=== PATIENT | male | born 1955 | race Caucasian/White ===

== ENCOUNTER → 2021-03-03 00:31 | Outpatient (CLI) | payer MEDICARE, SELFPAY ==
[2021-03-03 19:26] LABS: SARS-CoV-2 RNA PCR Negative
== END ==
PROVIDERS: Visit Provider Internal Medicine Gastroenterology
DX: Z01.812 Encounter for preprocedural laboratory examination (principal); Z20.822 Contact with and (suspected) exposure to COVID-19
CPT/HCPCS: C9803; U0003; U0005

== ENCOUNTER 2021-03-07 00:53 | Day surgery (SDC) | payer MEDICARE, SELFPAY ==
[2021-02-28 15:37] VITALS: BMI 37.3
[2021-03-07 09:50] VITALS: BP 132/63; PULSE 77; RESP 18; TEMP 35.9; O2SAT 97; BMI 37.3
[2021-03-07 09:59] LABS: Glucose Point of Care 63 mg/dl (65-105)
--- NOTE | 2021-03-07 10:01 | WPDGICN ---
Assessment and Plan Assessment and plan (1) History of colon polyps: Code(s): Z86.010 - Personal history of colonic polyps Status: Acute Assessment and Plan: Patient has had a history of recurrent colon polyps. Plan is for surveillance colonoscopy now on at 3 year intervals in the future. Further recommendations may be given after colonoscopy. High-fiber diet is advised. GI Consult Note Consult date/time: 03/07/21 10:01 HPI: Conor Cornelius is a 65 year old male Presents for surveillance colonoscopy. Patient reports that he has had multiple polyps in the past. He typically will have a follow-up colonoscopy every 2-3 years. He states his current weight appetite bowel movements are normal. He denies abdominal pain. He has had no bleeding. Family history is noncontributory. He is due for follow-up colonoscopy. Past medical history is significant for COPD, diabetes mellitus, obesity. Review of Systems Review of Systems: All systems reviewed & are unremarkable except as noted in HPI and below PMFSH Social History Social History Smoking packs per day: 2 Smoking cigarettes per day: 40.0 Years smoked: 45 Smoking pack-years: 90.00 Smoking status: Current every day smoker Tobacco type: cigarettes Alcohol intake: current Substance use: current Substance use type: marijuana Other substance usage details: SMOKES AND EDIBLES Living arrangements: with family Spiritual care concerns: No Meds Home Medications and Allergies Home Medications Medication Instructions Recorded Confirmed Type cyclobenzaprine 5 mg tablet 5 mg PO TID PRN #50 tablet 01/08/21 03/07/21 Rx hydrocodone 10 mg-acetaminophen 1 tablet PO Q4-6H PRN #85 tablet 02/26/21 03/07/21 Rx 325 mg tablet aspirin [Adult Low Dose Aspirin] 81 mg PO DAILY 02/28/21 03/07/21 History atorvastatin 20 mg PO DAILY 02/28/21 03/07/21 History carbidopa-levodopa 1 tablet PO HS 02/28/21 03/07/21 History dapagliflozin [Farxiga] 5 mg PO DAILY 02/28/21 03/07/21 History duloxetine 60 mg PO DAILY 02/28/21 03/07/21 History gabapentin 1,200 mg PO BID 02/28/21 03/07/21 History gemfibrozil 600 mg PO BID 02/28/21 03/07/21 History glimepiride 4 mg PO BID 02/28/21 03/07/21 History insulin glargine [Lantus U-100 64 unit SUBCUT HS 02/28/21 03/07/21 History Insulin] ipratropium-albuterol [Combivent 2 puff INHALATION QID 02/28/21 03/07/21 History Respimat] lisinopril 10 mg PO DAILY 02/28/21 03/07/21 History lorazepam 0.5 mg PO TID PRN 02/28/21 03/07/21 History omeprazole 20 mg PO DAILY 02/28/21 03/07/21 History pioglitazone 30 mg PO DAILY 02/28/21 03/07/21 History Allergies Allergy/AdvReac Type Severity Reaction Status Date / Time morphine AdvReac Severe CAUSES Verified 03/07/21 09:47 SEVERE N;V Vital Signs Vital Signs - 24 hr 03/07/21 09:50 Temperature 96.7 F L Pulse Rate 77 Respiratory Rate 18 Blood Pressure 132/63 Pulse Oximetry 97 Exam Narrative: Exam Narrative: Physical exam reveals patient be alert. Vital signs stable. HEENT exam is unremarkable. Patient is anicteric. Lungs are clear to auscultation and percussion. Heart is without murmur or extra sounds. Abdominal exam is somewhat obese. Bowel sounds present soft nontender with no hepatosplenomegaly. Digital external rectal exam normal.
[2021-03-07] MEDS: DEXTROSE 50% 25 GM/50 ML SYRINGE IV PUSH (10:05)
[2021-03-07] MEDS: LACTATED RINGERS 1,000 ML 150 ML IV CONT ×2 (10:05→11:00)
[2021-03-07 10:19] LABS: Glucose Point of Care 134 mg/dl (65-105)
--- NOTE | 2021-03-07 10:53 | WPDANESEPPF ---
Anes - Initial Pre Proc Eval Procedure: Operation Date: 03/07/21 11:00 Proposed Procedures p Screening Colonoscopy - Hunter Tan MD Date/Time: 03/07/21 10:53 Surgeon: Hunter Tan MD Pre Op Diagnosis: neoplasm screening Patient Data Age: 65 Gender: M Height: 1.83 m Weight: 124.8 kg Last Vital Signs Temp 96.7 F L 03/07/21 09:50 Pulse 77 03/07/21 09:50 Resp 18 03/07/21 09:50 BP 132/63 03/07/21 09:50 Pulse Ox 97 03/07/21 09:50 Allergies Allergy/AdvReac Type Severity Reaction Status Date / Time morphine AdvReac Severe CAUSES Verified 03/07/21 09:47 SEVERE N;V Home Medications Medication Instructions Recorded Confirmed Type cyclobenzaprine 5 mg tablet 5 mg PO TID PRN #50 tablet 01/08/21 03/07/21 Rx hydrocodone 10 mg-acetaminophen 1 tablet PO Q4-6H PRN #85 tablet 02/26/21 03/07/21 Rx 325 mg tablet aspirin [Adult Low Dose Aspirin] 81 mg PO DAILY 02/28/21 03/07/21 History atorvastatin 20 mg PO DAILY 02/28/21 03/07/21 History carbidopa-levodopa 1 tablet PO HS 02/28/21 03/07/21 History dapagliflozin [Farxiga] 5 mg PO DAILY 02/28/21 03/07/21 History duloxetine 60 mg PO DAILY 02/28/21 03/07/21 History gabapentin 1,200 mg PO BID 02/28/21 03/07/21 History gemfibrozil 600 mg PO BID 02/28/21 03/07/21 History glimepiride 4 mg PO BID 02/28/21 03/07/21 History insulin glargine [Lantus U-100 64 unit SUBCUT HS 02/28/21 03/07/21 History Insulin] ipratropium-albuterol [Combivent 2 puff INHALATION QID 02/28/21 03/07/21 History Respimat] lisinopril 10 mg PO DAILY 02/28/21 03/07/21 History lorazepam 0.5 mg PO TID PRN 02/28/21 03/07/21 History omeprazole 20 mg PO DAILY 02/28/21 03/07/21 History pioglitazone 30 mg PO DAILY 02/28/21 03/07/21 History Laboratory Tests 03/07/21 03/07/21 09:57 10:17 POC Capillary Glucose 63 mg/dl L mg/dl 134 mg/dl H mg/dl (65-105) (65-105) Patient hx anesthesia problems: none Family hx anesthesia problems: none PMFSH Past Medical History Medical History (Updated 03/07/21 @ 10:53 by Godfrey Alvarez MD) Anxiety COPD (chronic obstructive pulmonary disease) Diabetes 1.5, managed as type 2 GERD (gastroesophageal reflux disease) Hyperlipidemia Hypertension Social History Social History Smoking packs per day: 2 Smoking cigarettes per day: 40.0 Years smoked: 45 Smoking pack-years: 90.00 Smoking status: Current every day smoker Tobacco type: cigarettes Alcohol intake: current Substance use: current Substance use type: marijuana Other substance usage details: SMOKES AND EDIBLES Living arrangements: with family Spiritual care concerns: No Anes - Eval Final PreProcedure Day of Procedure 03/07/21 10:53 Patient weight: obese Heart: regular rate and rhythm Lungs: clear to auscultation Airway: Mallampati scale class III Neurological: alert and oriented Last oral intake: >/= 8 hours ASA classification: III Emergent: no Anesthetic plan: proceed Anesthesia type and monitoring: general GIVS and standard monitoring Informed Consent: The patient's anesthetic plan and its attendant risks and benefits were discussed with the patient/family/POA. Questions were solicited and answers provided to the satisfaction of the patient/family/POA.
[2021-03-07 11:28] VITALS: BP 113/63; BP 113/75; PULSE 64; RESP 20; O2SAT 93
[2021-03-07 11:38] VITALS: BP 134/75; PULSE 66; RESP 18; O2SAT 100
[2021-03-07 11:44] LABS: Glucose Point of Care 70 mg/dl (65-105)
[2021-03-07 11:48] VITALS: BP 126/59; PULSE 63; RESP 22; O2SAT 99
== END 2021-03-07 12:04 | disposition home or self-care (01) ==
PROVIDERS: PCP Internal Medicine; Visit Provider Internal Medicine Gastroenterology
PROC: 0DJD8ZZ Inspection of Lower Intestinal Tract, Via Natural or Artificial Opening Endoscopic (ICD-10-PCS; CPT 45378; principal; 2021-03-07 11:00)
DX: Z12.11 Encounter for screening for malignant neoplasm of colon (principal); D12.5 Benign neoplasm of sigmoid colon; K64.8 Other hemorrhoids; J44.9 Chronic obstructive pulmonary disease, unspecified; E13.9 Other specified diabetes mellitus without complications; K21.9 Gastro-esophageal reflux disease without esophagitis; E78.5 Hyperlipidemia, unspecified; I10 Essential (primary) hypertension; F41.9 Anxiety disorder, unspecified; E66.9 Obesity, unspecified; Z68.37 Body mass index [BMI] 37.0-37.9, adult; F17.210 Nicotine dependence, cigarettes, uncomplicated; F12.90 Cannabis use, unspecified, uncomplicated; Z79.84 Long term (current) use of oral hypoglycemic drugs; Z79.82 Long term (current) use of aspirin; Z79.4 Long term (current) use of insulin; Z79.891 Long term (current) use of opiate analgesic
CPT/HCPCS: 45385; 82948; 88305; C9803; J2704; J7120; U0003; U0005

== ENCOUNTER 2021-11-25 06:47 | Inpatient (IN) | payer MEDICARE, SELFPAY ==
[2021-11-25] VITALS (44 sets, daily range): BP systolic 106–147; BP diastolic 50–109; PULSE 63–91; RESP 14–33; TEMP 36.5–36.7; O2SAT 83–100; BMI 38.0
--- NOTE | ~2021-11-25 | CT_ITS ---
EXAMINATION:CT diagnostic chest wo con DATE: 11/27/2021 08:44 INDICATION: Syndrome of inappropriate ADH. TECHNIQUE: Computed tomography (CT) of the chest was performed without intravenous contrast. Automate d exposure control and iterative reconstruction technique were employed. The dose-length product (DLP ) was 1001.40 mGy-cm. COMPARISON: Chest single view 11/25/2021 FINDINGS: There is mild atelectasis and scarring in the lungs, worst in peripheral right middle lobe and right lower lobe. No pleural effusion. The heart size is normal. There are coronary artery calcif ications. No pericardial effusion. There is mediastinal lymphadenopathy. A right paratracheal node me asures 2.0 x 2.0 cm. There is bilateral gynecomastia. The gallbladder is distended. Partially visuali zed is subcutaneous fat stranding in right upper quadrant, likely inflammation or edema. There is an old healed fracture of right fifth rib. There are bridging endplate osteophytes at multiple levels in the spine, consistent with diffuse idiopathic skeletal hyperostosis (DISH). IMPRESSION: 1. Mild mediastinal lymphadenopathy, most likely benign in the absence of known malignancy. 2. Gallbladder distention, which may be secondary to fasting. Reviewed, dictated and finalized at location A.
--- NOTE | ~2021-11-25 | XR_ITS ---
EXAMINATION: XR chest 1V portable DATE: 11/25/2021 08:24 INDICATION: Dyspnea. TECHNIQUE: A single frontal view of the chest was obtained on 2 radiographs. COMPARISON: Chest 2 views 03/24/2011 FINDINGS: Sensitivity is decreased by obesity. The chest demonstrates clear lungs without pneumonia, pleural effusion, or pneumothorax. The heart size is normal. IMPRESSION: 1. No acute cardiopulmonary disease. Reviewed, dictated and finalized at location A.
--- NOTE | ~2021-11-25 | XR_ITS ---
EXAMINATION: XR pelvis 1-2V DATE: 11/25/2021 11:28 INDICATION: Left pelvic pain. Fall. TECHNIQUE: An anteroposterior view of the pelvis was obtained on 2 radiographs. COMPARISON: CT abdomen and pelvis 03/28/2008 FINDINGS: Bone alignment is normal. No fracture. There is mild osteoarthritis of the hips. IMPRESSION: 1. Mild osteoarthritis of the hips. Reviewed, dictated and finalized at location A.
--- NOTE | 2021-11-25 07:00 | ED.WEAKNESS ---
HPI - Weakness General Chief complaint: Weakness Stated complaint: Weakness, fall this AM Time Seen by Provider: 11/25/21 07:00 Source: patient and family Mode of arrival: wheelchair Limitations: no limitations History of Present Illness HPI Narrative: Patient is a 66-year-old male with a history of COPD, hypertension, hyperlipidemia, presenting to the emergency department for evaluation of shortness of breath, generalized weakness. Patient states he has felt unwell over the past 3 weeks. Patient reports productive cough, shortness of breath that worsens with exertion. Denies fever, chest pain, nausea, vomiting or abdominal pain. Patient states he felt weak when he got up this morning to ambulate to the bathroom, did fall, while he was trying to sit down on the toilet. No head trauma. Denies any back pain, hip pain, extremity injury from this. Patient states that he felt somewhat shaky, his daughter called EMS and his glucose was 31. Patient was given dextrose, was able to tolerate some oral intake and felt improved with repeat glucose normal. Patient then declined transport to the hospital. Patient returned via personal vehicle with his daughter for continued shortness of breath, weakness. Patient denies any unilateral weakness or numbness. No difficulty with speech, dysarthria. No significant headache, neck pain Patient states he is vaccinated for COVID. Related Data Home Medications Medication Instructions Recorded Confirmed aspirin [Adult Low Dose Aspirin] 81 mg PO DAILY 02/28/21 08/13/21 atorvastatin 20 mg PO DAILY 02/28/21 08/13/21 dapagliflozin [Farxiga] 5 mg PO DAILY 02/28/21 08/13/21 duloxetine 60 mg PO DAILY 02/28/21 08/13/21 gabapentin 1,200 mg PO BID 02/28/21 08/13/21 gemfibrozil 600 mg PO BID 02/28/21 08/13/21 glimepiride 4 mg PO BID 02/28/21 08/13/21 insulin glargine [Lantus U-100 64 unit SUBCUT HS 02/28/21 08/13/21 Insulin] ipratropium-albuterol [Combivent 2 puff INHALATION QID 02/28/21 08/13/21 Respimat] lisinopril 10 mg PO DAILY 02/28/21 08/13/21 lorazepam 0.5 mg PO TID PRN 02/28/21 08/13/21 omeprazole 20 mg PO DAILY 02/28/21 08/13/21 pioglitazone 30 mg PO DAILY 02/28/21 08/13/21 Allergies Allergy/AdvReac Type Severity Reaction Status Date / Time morphine AdvReac Severe CAUSES Verified 11/25/21 07:05 SEVERE N;V Review of Systems Review of Systems: CONSTITUTIONAL: Denies fever, chills, or sweats. EYES: Denies visual changes, redness, or discharge. ENT: Denies rhinorrhea, congestion, sore throat, or otalgia. CARDIOVASCULAR: Denies chest pain, palpitations, or edema. RESPIRATORY: Reports cough and shortness of breath GASTROINTESTINAL: Denies abdominal pain, nausea, vomiting, or diarrhea. GENITOURINARY: Denies dysuria or hematuria. SKIN: Denies rash or itching. MUSCULOSKELETAL: Denies back pain, joint pain, or myalgia. NEUROLOGIC: Denies headache, numbness, reports generalized weakness PMFSH Past Medical History Medical History Anxiety COPD (chronic obstructive pulmonary disease) Diabetes 1.5, managed as type 2 GERD (gastroesophageal reflux disease) Hyperlipidemia Hypertension Social History Social History Smoking packs per day: 2 Smoking cigarettes per day: 40.0 Years smoked: 45 Smoking pack-years: 90.00 Smoking status: Current every day smoker Tobacco type: cigarettes Alcohol intake: current Substance use: current Substance use type: marijuana Other substance usage details: SMOKES AND EDIBLES Spiritual care concerns: No Exam Narrative: GENERAL: Awake, alert, conversant HEAD: Normocephalic, atraumatic. EYES: PERRLA and EOMI. ENT: Nares clear, no rhinorrhea or epistaxis. Mucous membranes moist. NECK: Supple. CHEST: Mild tachypnea, pursed lip breathing, patient is hypoxic, coarse breath sounds bilaterally with bilateral expiratory wheezing, r
[2021-11-25 07:02] LABS: Glucose Point of Care 71 mg/dl (65-105)
--- NOTE | 2021-11-25 07:02 | ECG_ITS ---
Measurements Intervals [place] Rate: 72 P: 45 WI: 178 QRS: 18 QRSD: 90 T: 65 QT: 378 QTc: 414 Interpretive Statements SINUS RHYTHM BASELINE ARTIFACT BUT PROBABLY NORMAL EKG. NO PREVIOUS ECG AVAILABLE FOR COMPARISON Electronically Signed On 11-25-2021 16:46:56 CDT by Yina Humphrey M.D.
[2021-11-25 07:22] LABS: Basophils Percent Auto 0.3 % (0.2-1.2); Hematocrit 43.8 % (42.0-52.0); Hemoglobin 13.5 g/dL (14.0-18.0); Immature Granulocyte Absolute 0.09 K/mm3 (0.00-0.031); Immature Granulocyte Percent A 2.5 % (0-0.5); Lymphocytes Absolute Auto 0.58 K/mm3 (0.9-3.2); Lymphocytes Percent Auto 15.8 % (18.3-44.2); Mean Corpuscular HGB Conc 30.8 g/dl (32-36); Mean Corpuscular Hemoglobin 26.3 pg (26-34); Mean Corpuscular Volume 85.2 fl (80-100); Mean Platelet Volume 9.7 fl (7.4-10.4); Monocytes Absolute Auto 0.4 K/mm3 (0.1-0.6); Monocytes Percent Auto 11.7 % (2.6-8.5); Neutrophils Absolute Auto 2.6 K/mm3 (1.3-6.7); Neutrophils Percent Auto 69.7 % (45.5-73.1); Platelet Count Result 160 k/mm3 (150-375); Red Blood Count 5.14 M/mm3 (4.6-6.20); Red Cell Distribution Width 16.9 % (11.5-14.5); White Blood Count 3.7 K/mm3 (4.5-10.0)
[2021-11-25 07:33] LABS: Alanine Aminotransferase 9 U/L (4-50); Albumin Level 3.9 g/dL (3.5-5.1); Alkaline Phosphatase 89 U/L (38-126); Anion Gap 7 mmol/L (8-16); Aspartate Amino Transferase 36 U/L (17-59); Bilirubin,Total 0.5 mg/dL (0.2-1.3); Blood Urea Nitrogen 20 mg/dL (9-20); Calcium 8.1 mg/dL (8.4-10.2); Carbon Dioxide 32 mmol/L (22-30); Chloride 88 mmol/L (98-107); Estimated CRCL calculation 76 ml/min; Estimated Glomerular Filt Rate > 60; Glucose 65 mg/dL (65-110); Potassium 5.2 mmol/L (3.4-5.0); Sodium 127 mmol/L (137-145)
[2021-11-25] MEDS: methylPREDNISolone SOD SUCC 125 MG VIAL IV PUSH (07:36)
[2021-11-25] MEDS: ALBUTEROL SULFATE NEB 2.5 MG/0.5 ML INH 5 MG INHALATION ×3 (07:41→19:55)
[2021-11-25] MEDS: IPRATROPIUM BR 0.02% INH SOLN 0.5 MG/2.5 ML VIAL INHALATION ×3 (07:42→19:55)
[2021-11-25 07:53] LABS: Alveolar/Arterial O2 Gradient 5.7 mmHg; Carboxyhemoglobin 5.8 % THb (0-2.0); Fractional Inspired Oxygen 28 %; HCO3 ABG 30.7 mEq/l (22.0-26.0); Methemoglobin ABG 0.1 %THb (0-1.5); Oxygen Content ABG 18.1 %vol (16.0-22.0); Oxygen Saturation ABG 97.5 % (95.0-100.0); Oxyhemoglobin 91.3 % THb (90.0-100.0); PO2 ABG 114.1 mmHg (80.0-100.0); PO2 FiO2 Ratio Arterial Blood 4.07 %; Reduced Hemoglobin 2.8 %THb (0-5.0)
[2021-11-25 07:56] LABS: pH ABG 7.275 (7.350-7.450)
[2021-11-25 07:57] LABS: Add Urine Microscopic? YES; Appearance Urine Clear (Clear); Bilirubin Urine Negative (Negative); Blood Urine Negative (Negative); Color Urine Yellow (Yellow); Glucose Urine UA Negative (Negative); Ketones Urine Negative (Negative); Leukocyte Esterase Ur Negative LEU/UL (Negative); Mucus Urine Rare /lpf; Nitrate Urine Negative (Negative); Protein Urine 1+ mg/dL (Negative); RBC Urine 0-2 /hpf (0-2); Specific Grav Ur 1.014 (1.001-1.035); WBC Urine 0-3 /hpf
[2021-11-25 07:57] LABS: Device NASAL CANNULA; Modified Allen's Test Pass; PCO2 ABG 67.7 mmHg (35.0-45.0); Site Drawn LEFT RADIAL
[2021-11-25 07:57] LABS: NT Pro B Type Natriuretic Pept 1290 pg/mL (5-100); Troponin I 0.016 ng/mL (0.000-0.034)
[2021-11-25] MEDS: SODIUM CHLORIDE 0.9% IV 1,000 ML 999 ML IV CONT (08:03)
[2021-11-25 08:38] LABS: SARS-CoV-2 RNA PCR Negative
[2021-11-25 09:05] LABS: Influenza A QL RT-PCR Negative (Negative); Influenza B QL RT-PCR Negative (Negative)
[2021-11-25 09:57] LABS: Alveolar/Arterial O2 Gradient 46.6 mmHg; Base Excess ABG 2.1 mEq/l (+/-2.0); Carboxyhemoglobin 4.9 % THb (0-2.0); Fractional Inspired Oxygen 24 %; HCO3 ABG 29.2 mEq/l (22.0-26.0); Methemoglobin ABG 0.1 %THb (0-1.5); Oxygen Content ABG 16.5 %vol (16.0-22.0); PCO2 ABG 56.1 mmHg (35.0-45.0); PO2 ABG 57.8 mmHg (80.0-100.0); PO2 FiO2 Ratio Arterial Blood 2.41 %; Reduced Hemoglobin 10.5 %THb (0-5.0); Total Hemoglobin 13.9 g/dL (12.0-18.0); pH ABG 7.334 (7.350-7.450)
[2021-11-25 09:58] LABS: Oxygen Saturation ABG 87.8 % (95.0-100.0)
[2021-11-25 09:59] LABS: Device BIPAP; Modified Allen's Test Pass; Oxyhemoglobin 84.5 % THb (90.0-100.0); Site Drawn LEFT RADIAL
[2021-11-25 10:00] LABS: Expiratory Pressure 5 cmH2O; Inspiratory Pressure 15 cmH2O
[2021-11-25 10:46] LABS: Troponin I 0.015 ng/mL (0.000-0.034)
[2021-11-25 11:06] LABS: Glucose Point of Care 93 mg/dl (65-105)
--- NOTE | 2021-11-25 11:21 | ADMGEN ---
This patient, Conor Cornelius, was admitted to IMU Room 214-01 at 10:30. Patient/family oriented to hospital policies and general routines including ID bracelet, bed and alarms, visiting hours, pain management, procedures, bathroom and other care routines, personal items, smoking policy, room service/diet, and visiting hours. Information on how to activate the Rapid Response Team has been discussed. Patient/Family are encouraged to report perceived risks to care and to ask questions if they do not understand what they are told or what they should do.
--- NOTE | 2021-11-25 11:22 | PC.NURSE ---
Patient complaining of severe left hip pain 7 out of 10. Patient stated he fell in the bathroom on his hip. Notified Dr. Lima because no imaging of hip/pelvis was done in the ED.
[2021-11-25 13:36] LABS: Troponin I 0.015 ng/mL (0.000-0.034)
[2021-11-25 14:00] LABS: Anion Gap 4 mmol/L (8-16); Blood Urea Nitrogen 21 mg/dL (9-20); Calcium 7.9 mg/dL (8.4-10.2); Carbon Dioxide 32 mmol/L (22-30); Chloride 90 mmol/L (98-107); Estimated CRCL calculation 76 ml/min; Estimated Glomerular Filt Rate > 60; Glucose 63 mg/dL (65-110); Potassium 5.5 mmol/L (3.4-5.0); Sodium 126 mmol/L (137-145)
[2021-11-25] MEDS: methylPREDNISolone SOD SUCC 125 MG VIAL 60 MG IV PUSH ×2 (14:03→18:13)
--- NOTE | 2021-11-25 15:05 | PM.IMHP ---
H&P: HPI History of Present Illness Date/Time: Patient requires inpatient monitoring with expected length of stay to exceed 2 midnights for management of care. 11/25/21 15:05 Chief Complaint: Generalized weakness Narrative: Mr. Cornelius is a 66 year old gentleman who presented emergency room with complaints of weakness, dizziness, and fall. Patient states that he woke up at approximately 4:30 a.m. and went to the bathroom became very dizzy and stumbled backwards and fell onto his butt. Patient denies any loss of consciousness, chest discomfort, or palpitations. Patient states he does have chronic shortness of breath secondary to his COPD and he did not notice any abnormal shortness of breath. Patient was unable to get up on his own EMS was called and upon initial evaluation by EMS patient's blood glucose was noted to be in the 30s. Patient was given oral glucose and he ate a candy bar and upon arrival to the emergency room patient's blood glucose was 71. Patient states that last evening his blood sugar was 105 and he took 50 units of Lantus insulin and did not have a snack. Upon evaluation in emergency room patient was noted to have respiratory acidosis and was placed on BiPAP. At this point time patient is sitting up in chair at bedside and wearing oxygen per nasal cannula and states that he does not want to wear the BiPAP all issues sleeping. Patient states he does have a history of obstructive sleep apnea and is supposed to be wearing his CPAP, but he has not done so since he was given a CPAP. Patient has a known history of COPD with noncompliance, diabetes mellitus, peripheral neuropathy, and dyslipidemia. Patient states that he is unsure if he is supposed to be oxygen at home, because he has never followed up for testing. Patient states that he does have sleep apnea and refuses to wear his CPAP because it is uncomfortable. Review of Systems Review of Systems: A 12 point review of systems was completed patient all pertinent positive and negative per HPI the remainder are unremarkable. 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 Hyperlipidemia Hypertension Social History Social History Smoking packs per day: 2 Smoking cigarettes per day: 40.0 Years smoked: 48 Smoking pack-years: 96.00 Smoking status: Current every day smoker Tobacco type: cigarettes Alcohol intake: never Substance use: current Substance use type: marijuana Other substance usage details: SMOKES AND EDIBLES Spiritual care concerns: No Meds Home Medications and Allergies Home Medications Medication Instructions Recorded Confirmed Type aspirin [Adult Low Dose Aspirin] 81 mg PO DAILY 02/28/21 11/25/21 History atorvastatin 20 mg PO DAILY 02/28/21 11/25/21 History duloxetine 60 mg PO DAILY 02/28/21 11/25/21 History gabapentin 1,200 mg PO BID 02/28/21 11/25/21 History gemfibrozil 600 mg PO BID 02/28/21 11/25/21 History glimepiride 4 mg PO BID 02/28/21 11/25/21 History insulin glargine [Lantus U-100 64 unit SUBCUT HS 02/28/21 11/25/21 History Insulin] ipratropium-albuterol [Combivent 2 puff INHALATION QID 02/28/21 11/25/21 History Respimat] lisinopril 2.5 mg PO DAILY 02/28/21 11/25/21 History lorazepam 0.5 mg PO TID PRN 02/28/21 11/25/21 History omeprazole 20 mg PO DAILY 02/28/21 11/25/21 History pioglitazone 30 mg PO DAILY 02/28/21 11/25/21 History hydrocodone 10 mg-acetaminophen 1 tablet PO Q4-6H PRN #85 tablet 07/11/21 11/25/21 Rx 325 mg tablet carbidopa 25 mg-levodopa 250 mg See Rx Instructions .ROUTE 09/28/21 11/25/21 Rx tablet .COMPLEX #90 tablet cyclobenzaprine 10 mg PO HS PRN 11/25/21 11/25/21 History Allergies Allergy/Adv
[2021-11-25] MEDS: oxyCODONE/ACETAMINOPHEN (*CRX) 5-325 MG TABLET 2 TABLET PO (16:24)
[2021-11-25] MEDS: DEXTROSE 5%/0.45% SOD CHL 1,000 ML 100 ML IV CONT (16:28)
[2021-11-25] MEDS: gemfibroziL 600 MG TABLET PO (16:34)
[2021-11-25] MEDS: GABAPENTIN 400 MG CAPSULE 1200 MG PO (16:34)
[2021-11-25 17:40] LABS: Glucose Point of Care 259 mg/dl (65-105)
[2021-11-25] MEDS: INSULIN GLARGINE (*BKC) 100 UNITS/ML 64 UNITS SUB-Q (19:56)
[2021-11-25 20:02] LABS: Glucose Point of Care 327 mg/dl (65-105)
[2021-11-25 20:27] LABS: Anion Gap 2 mmol/L (8-16); Blood Urea Nitrogen 21 mg/dL (9-20); Calcium 7.4 mg/dL (8.4-10.2); Carbon Dioxide 30 mmol/L (22-30); Chloride 86 mmol/L (98-107); Estimated CRCL calculation 76 ml/min; Estimated Glomerular Filt Rate > 60; Glucose 306 mg/dL (65-110); Sodium 118 mmol/L (137-145)
[2021-11-25 20:29] LABS: Base Excess ABG -0.6 mEq/l (+/-2.0); Fractional Inspired Oxygen 24 %; Oxygen Content ABG 18.1 %vol (16.0-22.0); Oxygen Saturation ABG 94.8 % (95.0-100.0); PO2 ABG 76.6 mmHg (80.0-100.0); PO2 FiO2 Ratio Arterial Blood 3.19 %; Total Hemoglobin 13.8 g/dL (12.0-18.0); pH ABG 7.363 (7.350-7.450)
[2021-11-25 20:31] LABS: Device BIPAP; Modified Allen's Test Pass; Site Drawn LEFT RADIAL
[2021-11-25 20:32] LABS: Expiratory Pressure 5 cmH2O; Inspiratory Pressure 15 cmH2O
[2021-11-25] MEDS: SODIUM CHLORIDE 0.9% IV 1,000 ML 100 ML IV CONT (21:22)
[2021-11-25] MEDS: LORazepam (*CRX) 0.5 MG TABLET PO (21:57)
[2021-11-25] MEDS: CYCLOBENZAPRINE HCL 10 MG TABLET PO (21:57)
[2021-11-25] MEDS: CARBIDOPA/LEVODOPA 25/250 MG TABLET 1 TABLET PO (22:23)
[2021-11-25] MEDS: DEXTROSE 50% 25 GM/50 ML SYRINGE IV PUSH (22:23)
[2021-11-25] MEDS: SODIUM ZIRCONIUM CYCLOSILICATE 10 GM POWD.PACK BY MOUTH (22:23)
[2021-11-25] MEDS: INSULIN HUMAN REGULAR (*BKC) 100 UNITS/ML 10 UNITS IV PUSH (22:43)
[2021-11-26] VITALS (24 sets, daily range): BP systolic 105–136; BP diastolic 41–60; PULSE 68–90; RESP 18–24; TEMP 35.6–36.8; O2SAT 90–99
--- NOTE | 2021-11-26 | ECHO_ITS ---
Patient Info Name: Conor Cornelius Age: 66 years : 1955 Gender: Male Ht: 72 in Wt: 280 lbs BSA: 2.59 m2 HR: 70 bpm BP: 130 / 51 mmHg Heart Rhythm: Sinus Rhythm Technical Quality: Fair Exam Date: 11/26/2021 10:17 AM Exam Location: [facility] Patient Status: Inpatient Admit Date: 11/25/2021 Staff Ordering Physician: Ирина Barrientos APRN Group President: Klaudia Powell RDCS Attending Provider: Melania Lima MD Referring Physician: Iliana RUELAS; Exam Type: CA echo doppler color flow Study Info Indications - SOB Complete two-dimensional, color flow and Doppler transthoracic echocardiogram is performed. Summary 1. Complete two-dimensional, color flow and Doppler transthoracic echocardiogram is performed. 2. Technically challenging examination because of patient obesity. 3. Grossly normal looking left ventricular size and systolic function. 4. No significant valvular pathology identified. Left Ventricular Outflow Tract Name Value Normal LVOT 2D LVOT Diameter 2.0 cm LVOT Doppler LVOT Peak Gradient 4 mmHg LVOT Mean Gradient 2 mmHg LVOT VTI 23 cm LVOT VTI/AV VTI Ratio 0.8 LVOT Stroke Volume 70 ml LVOT CO 5.4 l/min LVOT CI 2.1 l/min/m2 Mitral Valve Name Value Normal MV Doppler MV Decel [place] 710 cm/s2 MV PHT 44 ms MV Area (PHT) 5.0 cm2 4.0-5.0 MV Diastolic Function MV E Peak Velocity 107 cm/s MV A Peak Velocity 115 cm/s MV E/A 0.9 MV Decel Time 151 ms MV Annular TDI MV E/e' (Septal) 14.0 <=8.0 MV E/e' (Lateral) 12.7 <=8.0 MV E/e' (Average) 13.4 Tricuspid Valve Name Value Normal TV Regurgitation Doppler TR Peak Velocity 336 cm/s TR Peak Gradient 45 mmHg Estimated PAP/RSVP RA Pressure 10 mmHg <=5 PA Systolic Pressure 55 mmHg <36 RV Systolic Pressure 55 mmHg <
--- NOTE | 2021-11-26 00:11 | PCRCNOTE ---
Patient adamantly refusing to wear Bipap. Antique Finisher discussed the importance of wearing Bipap, especially at night, as to not lose the progress that his been made with his respiratory status. Patient still refuses. RN aware and she tried to talk him into wearing it as well.
[2021-11-26 01:17] LABS: Anion Gap 4 mmol/L (8-16); Blood Urea Nitrogen 24 mg/dL (9-20); Calcium 7.7 mg/dL (8.4-10.2); Carbon Dioxide 30 mmol/L (22-30); Chloride 86 mmol/L (98-107); Estimated CRCL calculation 76 ml/min; Estimated Glomerular Filt Rate > 60; Glucose 349 mg/dL (65-110); Sodium 120 mmol/L (137-145)
[2021-11-26] MEDS: methylPREDNISolone SOD SUCC 125 MG VIAL 60 MG IV PUSH ×3 (02:31→12:44)
[2021-11-26] MEDS: ALBUTEROL SULFATE NEB 2.5 MG/0.5 ML INH 5 MG INHALATION ×3 (02:35→20:29)
[2021-11-26] MEDS: IPRATROPIUM BR 0.02% INH SOLN 0.5 MG/2.5 ML VIAL INHALATION ×3 (02:35→20:29)
[2021-11-26 05:01] LABS: Basophils Percent Auto 0.2 % (0.2-1.2); Hematocrit 46.4 % (42.0-52.0); Hemoglobin 14.5 g/dL (14.0-18.0); Immature Granulocyte Percent A 2.5 % (0-0.5); Lymphocytes Absolute Auto 0.56 K/mm3 (0.9-3.2); Lymphocytes Percent Auto 13.8 % (18.3-44.2); Mean Corpuscular HGB Conc 31.3 g/dl (32-36); Mean Corpuscular Volume 83.3 fl (80-100); Mean Platelet Volume 10.1 fl (7.4-10.4); Monocytes Absolute Auto 0.1 K/mm3 (0.1-0.6); Monocytes Percent Auto 3.2 % (2.6-8.5); Neutrophils Absolute Auto 3.3 K/mm3 (1.3-6.7); Neutrophils Percent Auto 80.3 % (45.5-73.1); Platelet Count Result 160 k/mm3 (150-375); Red Blood Count 5.57 M/mm3 (4.6-6.20); Red Cell Distribution Width 16.2 % (11.5-14.5); White Blood Count 4.1 K/mm3 (4.5-10.0)
[2021-11-26 05:09] LABS: Anion Gap 9 mmol/L (8-16); Blood Urea Nitrogen 25 mg/dL (9-20); Calcium 7.9 mg/dL (8.4-10.2); Carbon Dioxide 30 mmol/L (22-30); Chloride 84 mmol/L (98-107); Estimated CRCL calculation 76 ml/min; Estimated Glomerular Filt Rate > 60; Glucose 358 mg/dL (65-110); Potassium 5.4 mmol/L (3.4-5.0); Sodium 123 mmol/L (137-145)
[2021-11-26] MEDS: gemfibroziL 600 MG TABLET PO ×2 (05:34→17:41)
[2021-11-26 07:39] LABS: Glucose Point of Care 366 mg/dl (65-105)
[2021-11-26] MEDS: SODIUM CHLORIDE 0.9% IV 1,000 ML 100 ML IV CONT (08:23)
[2021-11-26] MEDS: INSULIN ASPART (*BKC) 100 UNITS/ML SUB-Q ×3 (08:29→17:44)
[2021-11-26] MEDS: lisinopriL 2.5 MG TABLET PO (10:30)
[2021-11-26] MEDS: ENOXAPARIN 40 MG/0.4 ML SYRINGE SUB-Q (10:31)
[2021-11-26] MEDS: DULoxetine HCL 60 MG CAPSULE.DR PO (10:31)
[2021-11-26] MEDS: GABAPENTIN 400 MG CAPSULE 1200 MG PO ×2 (10:31→17:41)
[2021-11-26] MEDS: ASPIRIN 81 MG CHEWABLE TABLET PO (10:32)
[2021-11-26] MEDS: ATORVASTATIN 20 MG TABLET PO (10:32)
[2021-11-26 11:07] LABS: Anion Gap 6 mmol/L (8-16); Blood Urea Nitrogen 26 mg/dL (9-20); Carbon Dioxide 30 mmol/L (22-30); Chloride 88 mmol/L (98-107); Estimated CRCL calculation 76 ml/min; Estimated Glomerular Filt Rate > 60; Glucose 322 mg/dL (65-110); Potassium 5.2 mmol/L (3.4-5.0); Sodium 124 mmol/L (137-145)
[2021-11-26 12:14] LABS: Glucose Point of Care 334 mg/dl (65-105)
[2021-11-26] MEDS: PANTOPRAZOLE 40 MG TABLET PO (12:44)
--- NOTE | 2021-11-26 14:37 | PM.IMPN ---
Progress Note: A&P Assessment and Plan (1) Acute respiratory failure with hypoxia and hypercarbia: Code(s): J96.01 - Acute respiratory failure with hypoxia; J96.02 - Acute respiratory failure with hypercapnia Status: Acute Assessment and Plan: Pt has transitioned to 2 liters and BIPAP at night. Patient has been placed on nebulizer treatments as well as IV steroids. Slowly recovering (2) Hypoglycemia: Code(s): E16.2 - Hypoglycemia, unspecified Status: Resolved Assessment and Plan: Pts glucose is 322 cut back on IV steroids continue ccuchecks, SSI (3) Generalized weakness: Code(s): R53.1 - Weakness Status: Acute Assessment and Plan: Pt will need PT and OT (4) Acute hyponatremia: Code(s): E87.1 - Hypo-osmolality and hyponatremia Status: Acute Assessment and Plan: Most likely SIADH secondary to patient's acute exacerbation of COPD. Pt will benefit from CT CHEST TO RULE OUT MALIGNANCY (5) Tobacco abuse: Code(s): Z72.0 - Tobacco use Status: Acute Assessment and Plan: Pt is a smoker of one pack a day offered nicotine patch Subjective Date/time seen: 11/26/21 14:37 Interval history: Patient states he does have chronic shortness of breath secondary to his COPD and he did not notice any abnormal shortness of breath. Patient was unable to get up on his own EMS was called and upon initial evaluation by EMS patient's blood glucose was noted to be in the 30s. Pt is non compliant and continues to smoke, brought in with sob and hypoglycemia. Review of Systems Review of Systems: All systems reviewed & are unremarkable except as noted in HPI and below Exam Const: General: in distress Orientation/consciousness: Other orientation findings (Morbidly obese tired ) HENMT: Head: normal to inspection Resp: Effort & Inspection: respiratory distress Auscultation: rhonchi (bilateral ) and wheezes Cardio: Rate: regular rate Rhythm: regular rhythm GI: Inspection: normal to inspection GI Palp: No abdominal tenderness, No Guarding due to palpation present (GI) and No Hepatomegaly present Auscultation: normal bowel sounds Neuro: General: oriented to person Objective Data Vital Signs Vital Signs: Vital Signs - 24 hr 11/25/21 14:45 11/25/21 15:03 11/25/21 15:11 Temperature Pulse Rate 72 76 74 Respiratory Rate 24 H 20 20 Blood Pressure Pulse Oximetry 96 91 11/25/21 16:00 11/25/21 16:43 11/25/21 18:00 Temperature 36.5 C Pulse Rate 78 79 Respiratory Rate 14 Blood Pressure 141/77 H Pulse Oximetry 91 93 11/25/21 20:00 11/25/21 20:10 11/25/21 20:20 Temperature 36.6 C Pulse Rate 78 78 78 Respiratory Rate 24 H 24 H 24 H Blood Pressure 147/56 H Pulse Oximetry 94 94 11/25/21 22:00 11/25/21 23:47 11/26/21 00:00 Temperature 36.6 C Pulse Rate 76 79 78 Respiratory Rate 23 H 24 H Blood Pressure 134/50 L Pulse Oximetry 98 94 11/26/21 02:00 11/26/21 02:35 11/26/21 02:45 Temperature Pulse Rate 74 72 72 Respiratory Rate 20 20 Blood Pressure Pulse Oximetry 11/26/21 04:00 11/26/21 07:57 11/26/21 08:00 Temperature 36.6 C 36.2 C L Pulse Rate 70 79 76 Respiratory Rate 20 22 H Blood Pressure 130/51 L 105/57 L Pulse Oximetry 94 93 93 11/26/21 08:47 11/26/21 10:00 11/26/21 12:00 Temperature Pulse Rate 69 76 Respiratory Rate Blood Pressure Pulse Oximetry 91 94 11/26/21 12:17 11/26/21 14:26 11/26/21 14:34 Temperature 35.9 C L Pulse Rate 73 72 73 Respiratory Rate 24 H 20 20 Blood Pressure 125/41 L Pulse Oximetry 94 Intake/Output Intake/Output: Intake & Output 11/23/21 11/24/21 11/25/21 11/26/21 22:59 22:59 23:59 23:59 Intake Total 1610 Output Total 800 Balance 810 Meds/Results Medications: Active Medications Generic Name Dose Route Start Last Admin Trade Name Freq PRN Reason Stop Dose Admin Acetaminophen 650 mg
--- NOTE | 2021-11-26 14:46 | PCCCNOTE ---
On 11/26/21, the student, [Fang Weaver ], provided care and [facility] I have reviewed the student's documentation and agree with the findings.
[2021-11-26 14:56] LABS: Hepatitis B Surface Anti Res Negative
[2021-11-26 17:11] LABS: Glucose Point of Care 302 mg/dl (65-105)
[2021-11-26] MEDS: methylPREDNISolone SOD SUCC 40 MG VIAL IV PUSH ×2 (18:07→23:16)
[2021-11-26 19:52] LABS: Glucose Point of Care 297 mg/dl (65-105)
[2021-11-26] MEDS: CARBIDOPA/LEVODOPA 25/250 MG TABLET 1 TABLET PO (20:45)
[2021-11-26] MEDS: INSULIN GLARGINE (*BKC) 100 UNITS/ML 64 UNITS SUB-Q (20:45)
[2021-11-26] MEDS: SODIUM CHLORIDE 0.9% IV 1,000 ML 50 ML IV CONT (20:48)
[2021-11-26 22:18] LABS: Hepatitis B Surface Antigen Negative (Negative)
[2021-11-27] VITALS (23 sets, daily range): BP systolic 107–136; BP diastolic 49–89; PULSE 68–90; RESP 16–25; TEMP 35.8–36.9; O2SAT 90–98
[2021-11-27] MEDS: IPRATROPIUM BR 0.02% INH SOLN 0.5 MG/2.5 ML VIAL INHALATION ×4 (02:20→21:10)
[2021-11-27] MEDS: ALBUTEROL SULFATE NEB 2.5 MG/0.5 ML INH 5 MG INHALATION ×4 (02:20→21:09)
[2021-11-27] MEDS: gemfibroziL 600 MG TABLET PO ×2 (05:55→17:15)
[2021-11-27] MEDS: methylPREDNISolone SOD SUCC 40 MG VIAL IV PUSH ×2 (05:55→18:58)
[2021-11-27 07:42] LABS: Anion Gap 4 mmol/L (8-16); Blood Urea Nitrogen 28 mg/dL (9-20); Calcium 8.2 mg/dL (8.4-10.2); Carbon Dioxide 31 mmol/L (22-30); Chloride 92 mmol/L (98-107); Estimated CRCL calculation 95 ml/min; Estimated Glomerular Filt Rate > 60; Glucose 251 mg/dL (65-110); Potassium 5.2 mmol/L (3.4-5.0); Sodium 127 mmol/L (137-145)
[2021-11-27 08:29] LABS: Glucose Point of Care 234 mg/dl (65-105)
--- NOTE | 2021-11-27 10:30 | PM.IMPN ---
Progress Note: A&P Assessment and Plan (1) COPD (chronic obstructive pulmonary disease): Code(s): J44.9 - Chronic obstructive pulmonary disease, unspecified Status: Acute Assessment and Plan: Chest xray shows no acute cardiopulmonary disease Chest CT Mild mediastinal lymphadenopathy, most likely benign in the absence of known malignancy, Gallbladder distention, which may be secondary to fasting. Solu-medrol 40mg IV Q6hr Neb treatment Consider pulmonary consult (2) Acute respiratory failure with hypoxia and hypercarbia: Code(s): J96.01 - Acute respiratory failure with hypoxia; J96.02 - Acute respiratory failure with hypercapnia Status: Acute Assessment and Plan: Pt has transitioned to 2 liters and BIPAP at night nebulizer treatments IV steroids 40mg IV Q6hr Slowly recovering (3) Hypoglycemia: Code(s): E16.2 - Hypoglycemia, unspecified Status: Resolved Assessment and Plan: Pts glucose is 251 cut back on IV steroids continue accu-checks, SSI (4) Generalized weakness: Code(s): R53.1 - Weakness Status: Acute Assessment and Plan: Pt will need PT and OT (5) Acute hyponatremia: Code(s): E87.1 - Hypo-osmolality and hyponatremia Status: Acute Assessment and Plan: Most likely SIADH secondary to patient's acute exacerbation of COPD CT CHEST TO RULE OUT MALIGNANCY (6) Tobacco abuse: Code(s): Z72.0 - Tobacco use Status: Acute Assessment and Plan: Smoker of one pack a day offered nicotine patch Time Spent With Patient Time with patient: Greater than 35 minutes Subjective Date/time seen: 11/27/21 1030 Interval history: 11/25/21 15:05 Narrative: Mr. Cornelius is a 66 year old gentleman who presented emergency room with complaints of weakness, dizziness, and fall. Patient states that he woke up at approximately 4:30 a.m. and went to the bathroom became very dizzy and stumbled backwards and fell onto his butt. Patient denies any loss of consciousness, chest discomfort, or palpitations. Patient states he does have chronic shortness of breath secondary to his COPD and he did not notice any abnormal shortness of breath. Patient was unable to get up on his own EMS was called and upon initial evaluation by EMS patient's blood glucose was noted to be in the 30s. Patient was given oral glucose and he ate a candy bar and upon arrival to the emergency room patient's blood glucose was 71. Patient states that last evening his blood sugar was 105 and he took 50 units of Lantus insulin and did not have a snack. Upon evaluation in emergency room patient was noted to have respiratory acidosis and was placed on BiPAP. At this point time patient is sitting up in chair at bedside and wearing oxygen per nasal cannula and states that he does not want to wear the BiPAP all issues sleeping. Patient states he does have a history of obstructive sleep apnea and is supposed to be wearing his CPAP, but he has not done so since he was given a CPAP. Patient has a known history of COPD with noncompliance, diabetes mellitus, peripheral neuropathy, and dyslipidemia. Patient states that he is unsure if he is supposed to be oxygen at home, because he has never followed up for testing. Patient states that he does have sleep apnea and refuses to wear his CPAP because it is uncomfortable. Date/Time 11/26/21 1437 Patient states he does have chronic shortness of breath secondary to his COPD and he did not notice any abnormal shortness of breath. Patient was unable to get up on his own EMS was called and upon initial evaluation by EMS patient's blood glucose was noted to be in the 30s. Pt is non compliant and continues to smoke, brought in with sob and hypoglycemia. Date/Time 11/27/21 1030 Patient was lying in bed. Patient denies wearing oxygen at home. Patient does have moments of desa
[2021-11-27] MEDS: ASPIRIN 81 MG CHEWABLE TABLET PO (10:48)
[2021-11-27] MEDS: ATORVASTATIN 20 MG TABLET PO (10:48)
[2021-11-27] MEDS: lisinopriL 2.5 MG TABLET PO (10:49)
[2021-11-27] MEDS: GABAPENTIN 400 MG CAPSULE 1200 MG PO ×2 (10:49→17:15)
[2021-11-27] MEDS: DULoxetine HCL 60 MG CAPSULE.DR PO (10:49)
[2021-11-27] MEDS: ENOXAPARIN 40 MG/0.4 ML SYRINGE SUB-Q (10:49)
[2021-11-27] MEDS: SODIUM ZIRCONIUM CYCLOSILICATE 10 GM POWD.PACK BY MOUTH ×3 (10:50→18:58)
[2021-11-27] MEDS: NICOTINE (*PBKC) 21 MG PATCH 1 PATCH TRANSDERM (10:50)
[2021-11-27] MEDS: INSULIN ASPART (*BKC) 100 UNITS/ML SUB-Q ×2 (11:02→12:23)
[2021-11-27] MEDS: PANTOPRAZOLE 40 MG TABLET PO (12:18)
[2021-11-27 12:28] LABS: Glucose Point of Care 261 mg/dl (65-105)
[2021-11-27 17:26] LABS: Glucose Point of Care 50 mg/dl (65-105)
[2021-11-27] MEDS: DEXTROSE 50% 25 GM/50 ML SYRINGE IV PUSH (17:28)
[2021-11-27 18:02] LABS: Glucose Point of Care 98 mg/dl (65-105)
[2021-11-27] MEDS: SODIUM CHLORIDE 0.9% IV 1,000 ML 50 ML IV CONT (20:41)
[2021-11-27] MEDS: CARBIDOPA/LEVODOPA 25/250 MG TABLET 1 TABLET PO (22:03)
[2021-11-27] MEDS: HYDROcodone/acetaminophen (*CRX) 10-325 MG TABLET 1 TAB PO (22:03)
[2021-11-27 22:04] LABS: Glucose Point of Care 41 mg/dl (65-105)
[2021-11-27 22:04] LABS: Glucose Point of Care 105 mg/dl (65-105)
[2021-11-28] VITALS (20 sets, daily range): BP systolic 144–149; BP diastolic 53–59; PULSE 69–98; RESP 18–29; TEMP 35.7–37.1; O2SAT 87–96
[2021-11-28] MEDS: methylPREDNISolone SOD SUCC 40 MG VIAL IV PUSH ×3 (00:16→11:13)
[2021-11-28] MEDS: ALBUTEROL SULFATE NEB 2.5 MG/0.5 ML INH 5 MG INHALATION ×3 (02:16→13:45)
[2021-11-28] MEDS: IPRATROPIUM BR 0.02% INH SOLN 0.5 MG/2.5 ML VIAL INHALATION ×3 (02:17→13:45)
[2021-11-28] MEDS: gemfibroziL 600 MG TABLET PO (05:09)
[2021-11-28 05:35] LABS: Basophils Percent Auto 0.2 % (0.2-1.2); Hematocrit 43.8 % (42.0-52.0); Immature Granulocyte Absolute 0.08 K/mm3 (0.00-0.031); Immature Granulocyte Percent A 1.7 % (0-0.5); Lymphocytes Absolute Auto 0.28 K/mm3 (0.9-3.2); Lymphocytes Percent Auto 5.9 % (18.3-44.2); Mean Corpuscular HGB Conc 29.7 g/dl (32-36); Mean Corpuscular Volume 87.6 fl (80-100); Mean Platelet Volume 10.5 fl (7.4-10.4); Monocytes Absolute Auto 0.2 K/mm3 (0.1-0.6); Monocytes Percent Auto 3.6 % (2.6-8.5); Neutrophils Absolute Auto 4.2 K/mm3 (1.3-6.7); Neutrophils Percent Auto 88.6 % (45.5-73.1); Nucleated Red Blood Cells Perc 0.4 % (0.0-0.2); Platelet Count Result 146 k/mm3 (150-375); Red Cell Distribution Width 16.5 % (11.5-14.5); White Blood Count 4.7 K/mm3 (4.5-10.0)
[2021-11-28 05:47] LABS: Alanine Aminotransferase 10 U/L (4-50); Albumin Level 3.4 g/dL (3.5-5.1); Alkaline Phosphatase 76 U/L (38-126); Anion Gap 3 mmol/L (8-16); Aspartate Amino Transferase 41 U/L (17-59); Bilirubin,Total 0.4 mg/dL (0.2-1.3); Blood Urea Nitrogen 22 mg/dL (9-20); Calcium 8.4 mg/dL (8.4-10.2); Carbon Dioxide 33 mmol/L (22-30); Chloride 95 mmol/L (98-107); Estimated CRCL calculation 87 ml/min; Estimated Glomerular Filt Rate > 60; Glucose 139 mg/dL (65-110); Magnesium 1.7 mg/dL (1.6-2.3); Potassium 4.9 mmol/L (3.4-5.0); Sodium 131 mmol/L (137-145)
[2021-11-28] MEDS: DULoxetine HCL 60 MG CAPSULE.DR PO (08:01)
[2021-11-28] MEDS: ASPIRIN 81 MG CHEWABLE TABLET PO (08:01)
[2021-11-28] MEDS: GABAPENTIN 400 MG CAPSULE 1200 MG PO (08:02)
[2021-11-28] MEDS: ENOXAPARIN 40 MG/0.4 ML SYRINGE SUB-Q (08:02)
[2021-11-28] MEDS: ATORVASTATIN 20 MG TABLET PO (08:02)
[2021-11-28] MEDS: PANTOPRAZOLE 40 MG TABLET PO (08:02)
[2021-11-28] MEDS: lisinopriL 2.5 MG TABLET PO (08:03)
[2021-11-28 09:44] LABS: Glucose Point of Care 152 mg/dl (65-105)
[2021-11-28] MEDS: SODIUM ZIRCONIUM CYCLOSILICATE 10 GM POWD.PACK BY MOUTH (10:16)
[2021-11-28] MEDS: FUROSEMIDE INJ 40 MG/4 ML VIAL IV PUSH (10:33)
--- NOTE | 2021-11-28 11:00 | PM.DS ---
DS: Admitting Diagnosis Discharge Date 11/28/21 1100 Admitting Diagnosis Acute respiratory failure, COPD, and hyponatremia DS: Discharge Diagnosis Discharge Diagnosis (1) COPD (chronic obstructive pulmonary disease): Code(s): J44.9 - Chronic obstructive pulmonary disease, unspecified Status: Acute Assessment and Plan: Chest xray shows no acute cardiopulmonary disease Chest CT Mild mediastinal lymphadenopathy, most likely benign in the absence of known malignancy, Gallbladder distention, which may be secondary to fasting. Solu-medrol 40mg IV Q6hr Neb treatment Consider pulmonary consult (2) Acute respiratory failure with hypoxia and hypercarbia: Code(s): J96.01 - Acute respiratory failure with hypoxia; J96.02 - Acute respiratory failure with hypercapnia Status: Acute Assessment and Plan: Pt has transitioned to 2 liters and BIPAP at night nebulizer treatments IV steroids 40mg IV Q6hr Slowly recovering (3) Hypoglycemia: Code(s): E16.2 - Hypoglycemia, unspecified Status: Resolved Assessment and Plan: Pts glucose is 251 cut back on IV steroids continue accu-checks, SSI (4) Generalized weakness: Code(s): R53.1 - Weakness Status: Acute Assessment and Plan: Pt will need PT and OT (5) Acute hyponatremia: Code(s): E87.1 - Hypo-osmolality and hyponatremia Status: Acute Assessment and Plan: Most likely SIADH secondary to patient's acute exacerbation of COPD CT CHEST TO RULE OUT MALIGNANCY (6) Tobacco abuse: Code(s): Z72.0 - Tobacco use Status: Acute Assessment and Plan: Smoker of one pack a day offered nicotine patch DS: Summary Hospital Course Hospital Course: Patient is a 66-year-old male with a past medical history anxiety, COPD, diabetes, GERD, hyperlipidemia and hypertension who presented to the ED with weakness from a fall. It was noted while the patient was here that he was desaturating and needed to be placed on oxygen. Patient did have supplemental oxygen at 5 L which has been titrated down. Steroids were started for possible COPD exacerbation however he did not complain of any cough or wheezes. Patient was noted to have wheezes on exam. He denies any fevers or sweats. He also denies any chest pain, nausea, vomiting, diarrhea, constipation. Patient is urinating okay but did state that he had lots of pain in his right foot. He attributed this pain to his neuropathy. Patient did have a porcelain buildup assistant at 1 point however he has not had him since he retired out of [place]. Patient stated he was ready to go. Labs are stable for discharge and I did talk to pulmonology Dr. Wilson who recommends to follow up with them in the clinic in 3-4 weeks. He also was started on inhalers in the inhaler that was suggested was way too expensive for the patient so I did put him on Symbicort and Singulair. A home O2 eval was performed. Patient is stable for discharge with vital signs and laboratory results. Sodium was noted to be a little low throughout the admission however has corrected 131 today. Patient denies any further chest pain, shortness of breath, weakness or fatigue. Time spent discussing smoking cessation with patient: more than 10 minutes Status at Discharge Functional status at discharge: uses cane/walker Overall status at discharge: patient is progressing back to baseline Time Spent with Patient Time attestation: Total time spent providing and/or coordinating discharge services: 43 minutes Time spent: Greater than 30 minutes Specific discharge activities: Diagnostic testing, chart review, developing a treatment plan, education, care coordination documentation, physical exam, result review Exam Const: General: cooperative, no acute distress, well developed, alert, awake, in distress and tired appearing Nutritional Appearance: ob
[2021-11-28] MEDS: HYDROcodone/acetaminophen (*CRX) 10-325 MG TABLET 1 TAB PO (11:14)
[2021-11-28 12:10] LABS: Glucose Point of Care 262 mg/dl (65-105)
[2021-11-28] MEDS: INSULIN ASPART (*BKC) 100 UNITS/ML SUB-Q (12:23)
--- NOTE | 2021-11-28 14:49 | HOMEO2EVAL ---
Evaluation was performed at [facility] Home Oxygen Evaluation RC: Home Oxygen (O2) Evaluation Start: 11/28/21 13:20 Freq: ONCE Status: Active Protocol: RPE Activity Type Activity Date Activity User E-Sign Co-Sign Detail Recorded Client Recorded Date Recorded By Document 11/28/21 14:15 [email or web address] 11/28/21 14:49 KRM Document 11/28/21 14:17 [email or web address] 11/28/21 14:49 KRM Document 11/28/21 14:18 [email or web address] 11/28/21 14:49 KRM Document 11/28/21 14:20 [email or web address] 11/28/21 14:49 KRM 11/28/21 11/28/21 11/28/21 14:15 14:17 14:18 Home O2 Evaluation Test Phase Resting Exercise Exercise Oxygen Delivery Room Air Room Air Nasal Cannula Oxygen Flow Rate (L/min) 1 Pulse Oximetry (90-100 %) 91 87 L 89 L Pulse Rate (60-100 beats/min) 92 98 91 Activity Tolerance Fair Fair Ambulation Distance (feet) 50 Ambulation Distance (meters) 15.23 Home Oxygen Evaluation Comments Treatment Charges 11/28/21 14:20 Home O2 Evaluation Test Phase Exercise Oxygen Delivery Nasal Cannula Oxygen Flow Rate (L/min) 2 Pulse Oximetry (90-100 %) 91 Pulse Rate (60-100 beats/min) 94 Activity Tolerance Fair Ambulation Distance (feet) 50 Ambulation Distance (meters) 15.23 Home Oxygen Evaluation Comments PT. REQUIRES 2LPM WITH ACTIVITY. Treatment Charges O2 Evaluation - Inpatient
--- NOTE | 2021-11-28 15:07 | PCRCNOTE ---
HOME O2 EVALUATION COMPLETED. PT. REQUIRES 2LPM WITH ACTIVITY. PT. DME IS [facility] ([facility] INFO FAXED TO THEM AND TANK IN THE ROOM READY TO GO.
== END 2021-11-28 16:15 | disposition home or self-care (01) | DRG 189 ==
LOC: ANHED 07:58 → ANHIMU 12:13 → ANHCPC 11-28 13:36 → ANHIMU 11-29 14:38
PROVIDERS: Emergency Medicine; Family Medicine; Internal Medicine Nephrology; Nurse Practitioner Adult Health; Admitting Provider Hospitalist; Emergency Provider Emergency Medicine; PCP Internal Medicine; Visit Provider Nurse Practitioner
DX: J96.01 Acute respiratory failure with hypoxia (principal); J44.1 Chronic obstructive pulmonary disease with (acute) exacerbation; E22.2 Syndrome of inappropriate secretion of antidiuretic hormone; J96.02 Acute respiratory failure with hypercapnia; E13.649 Other specified diabetes mellitus with hypoglycemia without coma; Z20.822 Contact with and (suspected) exposure to COVID-19; I10 Essential (primary) hypertension; E78.5 Hyperlipidemia, unspecified; F41.9 Anxiety disorder, unspecified; K21.9 Gastro-esophageal reflux disease without esophagitis; F17.210 Nicotine dependence, cigarettes, uncomplicated; G47.33 Obstructive sleep apnea (adult) (pediatric); E13.42 Other specified diabetes mellitus with diabetic polyneuropathy; E87.5 Hyperkalemia; D64.9 Anemia, unspecified; E86.0 Dehydration; Z79.82 Long term (current) use of aspirin; Z91.19 Patient's noncompliance with other medical treatment and regimen; Z89.421 Acquired absence of other right toe(s)
CPT/HCPCS: 36415; 36600; 71045; 71250; 72170; 80048; 80053; 81001; 82375; 82805; 82948; 83050; 83605; 83735; 83880; 84484; 85025; 86706; 87040; 87340; 87502; 93005; 93306; 94002; 94003; 94618; 94640; 96361; 96374; 97110; 97161; 97165; 97530; 99291; A9270; C9803; J1650; J1815; J1940; J2920; J2930; J7030; U0003; U0005